=== PATIENT | male | born 1980 | race Caucasian/White ===

== ENCOUNTER 2024-11-16 22:27 | Emergency (ER) | payer OTHER ==
[~2024-11-16] VITALS: Ht 175.3 cm; Wt 65.0 kg
[2024-11-16 22:32] VITALS: O2SAT 99
[2024-11-17 00:37] LABS: BASOPHILS % 0.1 % (0.0-2.0); EOSINOPHILS % 0.2 % (0.0-5.0); HEMATOCRIT. 41.3 % (42.0-52.0); HEMOGLOBIN. 14.3 g/dL (14.0-18.0); LYMPHOCYTES % 7.2 % (20.0-50.0); MEAN PLATELET VOLUME 9.5 fl (7.4-10.4); MONOCYTES % 5.2 % (2.0-8.0); NEUTROPHILS % 87.3 % (40.0-76.0); PLATELET 244 x1000/uL (130-400); RED BLOOD CELL COUNT 4.70 mill/uL (4.7-6.1); RED CELL DISTRIBUTION WIDTH 13.3 % (11.6-14.6)
[2024-11-17 00:49] LABS: CREATININE 1.0 mg/dL (0.6-1.3); UREA NITROGEN BLOOD 12 mg/dL (9-23)
[2024-11-17 00:51] LABS: ASPARTATE AMINOTRANSFERASE 40 IU/L (<34); BILIRUBIN DIRECT 0.2 mg/dL (<=3.0); BILIRUBIN TOTAL 0.9 mg/dL (0.1-1.0); PROTEIN TOTAL 6.9 g/dL (6.0-8.3)
[2024-11-17] MEDS: OXYCODONE HCL 5MG TABLET PO ONE (01:19)
[2024-11-17] MEDS ORDERED: IOHEXOL-300 100 ML BOTTLE ONE (01:32)
[2024-11-17 02:09] LABS: INR 1.0
[2024-11-17 02:40] LABS: CLARITY URINE CLEAR (CLEAR); COLOR URINE YELLOW (YELLOW); GLUCOSE URINE NEGATIVE (NEGATIVE); KETONES URINE NEGATIVE (NEGATIVE); LEUKOCYTE ESTERASE URINE NEGATIVE (NEGATIVE); NITRITE URINE NEGATIVE (NEGATIVE); OCCULT BLOOD URINE TRACE (NEGATIVE); PH URINE 6.5 (4.5-8.0); PROTEIN URINE NEGATIVE (NEGATIVE); SPECIFIC GRAVITY URINE 1.080 (1.005-1.030); UROBILINOGEN URINE 0.2 E.U./dL (0.2-1.0)
[2024-11-17] MEDS ORDERED: OXYC-662 MT (02:41)
[2024-11-17 03:00] LABS: SQUAMOUS EPITHELIAL CELL URINE NONE SEEN /lpf (RARE/1+); WBC URINE NONE SEEN /hpf (0-2)
[2024-11-17 03:01] LABS: BACTERIA URINE NONE SEEN
[2024-11-17 03:08] VITALS: BP 101/56; PULSE 85; RESP 13; TEMP 36.8; O2SAT 98
== END 2024-11-17 03:17 | disposition home or self-care (01) ==
LOC: ER 22:27 → CMPBEDREQ 11-17 05:10
DX: S32.038A Other fracture of third lumbar vertebra, initial encounter for closed fracture (principal); S32.028A Other fracture of second lumbar vertebra, initial encounter for closed fracture; S42.212A Unspecified displaced fracture of surgical neck of left humerus, initial encounter for closed fracture; S20.212A Contusion of left front wall of thorax, initial encounter; M25.512 Pain in left shoulder; M50.121 Cervical disc disorder at C4-C5 level with radiculopathy; M54.50 Low back pain, unspecified; Z79.82 Long term (current) use of aspirin; Z95.5 Presence of coronary angioplasty implant and graft; V43.62XA Car passenger injured in collision with other type car in traffic accident, initial encounter; Y93.89 Activity, other specified; Y92.410 Unspecified street and highway as the place of occurrence of the external cause; Y99.8 Other external cause status
CPT/HCPCS: 99285; 36415 ×2; 73030; 71260; 80076; 80048; 81003; 83690; 85025; 85610; 72125; 72128; 72131; 74177; Q9967